=== PATIENT | male | born 1990 | race Two or more races ===

== ENCOUNTER 2017-01-12 12:24 | Emergency (ER) | payer OTHER ==
[2017-01-12 13:25] VITALS: RESP 16; TEMP 97.7
[2017-01-12] MEDS ORDERED: TDAP ADULT 0.5 ML INJ (BOOSTRIX) IM ONE (13:26)
--- NOTE | 2017-01-12 13:29 | EDPHY ---
H & P Time Seen by Provider: 01/12/17 13:16 HPI/ROS: CHIEF COMPLAINT: Finger laceration HISTORY OF PRESENT ILLNESS: Patient is a 26-year-old male who presents emergency department after cutting his left index finger with a drill bit. Patient states he put on a new clean drill bit "out of the package." He accidentally drilled into the base of his left index finger. He has mild pain. Still has full range of motion of his finger. No loss of sensation. Bleeding is controlled. No other injury. REVIEW OF SYSTEMS: My complete review of systems is negative except as mentioned in the HPI. Past Medical/Surgical History: Negative Smoking Status: Unknown if ever smoked Physical Exam: Vitals noted General Appearance: Alert and no distress. Head: Pupils equal. Normal. Respiratory: No respiratory distress. Cardiac: regular rate and rhythm. Extremities: the patient has a laceration horizontally on the volar aspect at the base of the index finger. This is 2.5 cm in length. There is no visible muscle, nerve or tendon involvement. Patient has full range of motion of his finger. He has a normal neuro exam. Brisk capillary refill. Bleeding is controlled. Skin: No rashes or lesions. Neuro: Alert. Normal mood and affect. Constitutional: Initial Vital Signs Temperature (C) 36.5 C 01/12/17 13:15 Heart Rate 58 L 01/12/17 13:15 Respiratory Rate 16 01/12/17 13:15 Blood Pressure 114/73 01/12/17 13:15 O2 Sat (%) 96 01/12/17 13:15 O2 Delivery Mode Nasal Cannula Allergies/Adverse Reactions: No Known Allergies Allergy (Verified 01/12/17 13:20) Home Medications: Medication Instructions Recorded NK [No Known Home Meds] 01/12/17 Medical Decision Making - Diagnostics Imaging Results: Imaging Impressions Finger X-Ray 01/12/17 13:36 Impression: Negative radiographs of the left index finger. ED Course/Re-evaluation: In the emergency department I discussed the need for imaging. The patient consented. I discussed the plan and answered all his questions. Patient's wound was anesthetized and cleaned. Finger x-ray: Please refer the dictated report. No foreign body. Procedure: Laceration repair. Verbal consent was obtained from the patient. The 2.5 cm laceration on the base of the left index finger was anesthetized in the usual fashion. The wound was irrigated, draped and explored to its base with a gloved finger. There were no deep structures involved. No tendon injury was identified. The wound was repaired with 5 0 nylon. The wound repair was simple. The procedure was performed by myself. Due the fact that laceration is at the base of the finger and aluminum foam splint was placed. Patient was given wound care instructions. I gave patient warnings prior to leaving. He will return with worsening symptoms. Patient will follow up with workman's Comp. Differential Diagnosis: My differential includes but is not limited to laceration, foreign body, tendon injury, ligamentous injury, muscle injury, nerve injury - Data Points Medications Given: Discontinued Medications Diphtheria/Tetanus/Acell Pertussis (Boostrix) 0.5 ml IM .ONCE ONE Stop: 01/12/17 13:27 Last Admin: 01/12/17 13:48 Dose: 0.5 ml Departure - Departure Disposition: Home, Routine, Self-Care Clinical Impression: Laceration Finger laceration Qualifiers: Encounter type: initial encounter Finger: index finger Damage to nail status: without damage Foreign body presence: without foreign body Laterality: left Qualified Code(s): S61.211A - Laceration without foreign body of left index finger without damage to nail, initial encounter Condition: Good Instructions: Finger Laceration (ED) Additional Instructions: Your x-ray did not show a foreign body. Keep your wound clean and dry. Return to the emergency department in 10 days to have your sutures removed. Referrals: Work Comp Referral [facility] [Outside] - As per Instructions
[2017-01-12 14:44] VITALS: BP 118/76; PULSE 68; O2SAT 98
== END 2017-01-12 14:35 | disposition home or self-care (01) ==
LOC: CED 14:35
PROC: 3E0234Z Introduction of Serum, Toxoid and Vaccine into Muscle, Percutaneous Approach (ICD-10-PCS; principal; 2017-01-12)
PROC: 0HQGXZZ Repair Left Hand Skin, External Approach (ICD-10-PCS; principal; 2017-01-12)
DX: S61.211A Laceration without foreign body of left index finger without damage to nail, initial encounter (principal); Z23 Encounter for immunization; W31.0XXA Contact with mining and earth-drilling machinery, initial encounter; Y92.69 Other specified industrial and construction area as the place of occurrence of the external cause; Y99.0 Civilian activity done for income or pay; Y93.89 Activity, other specified
CPT/HCPCS: 73140-PO